=== PATIENT | male | born 1935 | race Caucasian/White ===

== ENCOUNTER 2017-05-22 08:06 | Observation (INO) | payer BC, OTHER ==
--- NOTE | 2017-05-13 09:36 | PAT Medication Instructions ---
Service Date May 13, 2017. Current Home Medication List Aspirin (Aspirin Ec), 81 MG PO QAM Ciprofloxacin Tab (Cipro), 500 MG PO BID Metformin Hcl (Glucophage), 1,000 MG PO QAM Metoprolol Tartrate (Lopressor) (Lopressor), 50 MG PO QAM Medication Instructions For Your Scheduled Surgery - Hold the following medications 10 days before surgery per your surgeon's instructions: Aspirin (Aspirin Ec), 81 MG PO QAM - Hold the following medications 48 hours prior to surgery: Metformin Hcl (Glucophage), 1,000 MG PO QAM - Take the following medications the morning of surgery with a sip of water: Metoprolol Tartrate (Lopressor) (Lopressor), 50 MG PO QAM Ciprofloxacin Tab (Cipro), 500 MG PO BID - Take the following medications as scheduled the night before surgery: Ciprofloxacin Tab (Cipro), 500 MG PO BID If you have any questions please call us at [phone] or [phone] or [phone]
--- NOTE | 2017-05-13 10:14 | DIAGNOSTIC IMAGING REPORT ---
TWO VIEW CHEST CLINICAL HISTORY: Preoperative examination. FINDINGS: PA and lateral chest radiographs are obtained. No prior studies are available for comparison at the time of dictation. The patient is status post midline sternotomy. The heart is enlarged and there is atherosclerotic calcification of the thoracic aorta. The pulmonary vasculature is noncongested. There is left basilar scarring versus atelectasis. The lungs and pleural spaces are otherwise clear. There is no pneumothorax. The skeletal structures are osteopenic. The bony thorax appears intact. IMPRESSION: Cardiomegaly with no active disease in the chest. Electronically signed by: Jorje Blackburn M.D. 05/13/2017 10:13 AM Dictated Date/Time: 05/13/2017 10:12 AM
[2017-05-13 10:24] LABS: BASO % 0.2 %; BASO ABS # 0.02 K/uL (0-0.2); COMPLETE YES; EOS % 1.4 %; IG% 0.4 %; LYMPH % 26.7 %; LYMPH ABS # 2.24 K/uL (1.2-3.4); MEAN CELL VOLUME 94.5 fL (80-100); MEAN CORPUSCULAR HEMOGLOBIN 32.4 pg (25-34); MEAN CORPUSCULAR HGB CONC 34.3 g/dl (32-36); MEAN PLATELET VOLUME 12.2 fL (7.4-10.4); MONO % 9.5 %; NEUT % 61.8 %; PLATELET COUNT 141 K/uL (130-400); RED BLOOD COUNT 4.87 M/uL (4.7-6.1)
[2017-05-13 11:19] LABS: BUN/CREATININE RATIO 18.8 (10-20); CALCIUM 9.2 mg/dl (8.5-10.1); CREATININE 1.09 mg/dl (0.60-1.40); POTASSIUM 4.1 mmol/L (3.5-5.1)
[2017-05-13 11:24] LABS: PROSTATE SPECIFIC ANTIGEN 6.82 ng/ml (0.000-4.000)
[2017-05-22] VITALS (10 sets, daily range): BP systolic 111–167; BP diastolic 66–84; PULSE 57–69; TEMP 36.2–36.9; O2SAT 91–97
[~2017-05-22] VITALS: Ht 170.2 cm; Wt 87.9 kg
[~2017-05-22 08:06] MED LIST: ASPI81TA28 PO; ATROPINE SULFATE 0.1 MG/ML 5ML SYR IV PRN; CIPR1TAB11 PO; CIPROFLOXACIN / D5W 400 MG IV SCH; EpHEDrine SULFATE INJ 50 MG/ML AMP IV PRN; FENTANYL CITRATE INJ 50 MCG/1 ML 2 ML VIAL IV PRN; GENTAMICIN INJ 120 MG in DEXTROSE 5% 100ML 100 ML IV SCH; HYDROmorphone INJ 1 MG/ML SYR IV PRN; LACTATED RINGER'S 1000ML 1,000 ML IV SCH; METF-384 PO; METO50TA16 PO; ONDANSETRON INJ 2 MG/ML 2 ML VIAL IV PRN
[2017-05-22] MEDS ORDERED: LIDOCAINE HCL 2% 2 ML VIAL (20MG/ML) ONE (10:02)
[2017-05-22] MEDS ORDERED: FENTANYL CITRATE INJ 50 MCG/1 ML 2 ML VIAL ONE (10:02)
[2017-05-22] MEDS ORDERED: ONDANSETRON INJ 2 MG/ML 2 ML VIAL ONE (10:02)
[2017-05-22] MEDS ORDERED: PROPOFOL IV EMULSION 10 MG/ML 20 ML VIAL IV ONE (10:02)
--- NOTE | 2017-05-22 10:14 | History & Physical Bridge Note ---
H&P Re-Evaluation Bridge Note: I have examined the patient, reviewed the History & Physical and in the interval since the performance of the History & Physical I have noted the following changes of clinical significance: No changes noted
[2017-05-22] MEDS ORDERED: NURSING VERBAL MED ORDER ONE (10:30)
[2017-05-22] MEDS ORDERED: DEXAMETHASONE SOD INJ 4 MG/ML VIAL ONE (11:23)
[2017-05-22] MEDS ORDERED: EpHEDrine SULFATE 50MG/5ML SYR ONE (11:30)
[2017-05-22] MEDS ORDERED: BELLADONNA/OPIUM SUPP 60 MG SUPP PR ONE ×3 (12:59→13:30)
[2017-05-22] MEDS ORDERED: HYDROmorphone INJ 1 MG/ML SYR IV PRN (13:30)
[2017-05-22] MEDS ORDERED: HYDROCODONE/ACETAMOPHEN 5/325MG TAB PO PRN (13:30)
[2017-05-22] MEDS ORDERED: OXYCODONE/ACETAMINOPHEN 5-325 TAB PO PRN (13:30)
[2017-05-22] MEDS ORDERED: PHENAZOPYRIDINE HCL 200 MG TAB PO PRN (13:30)
[2017-05-22] MEDS ORDERED: INSULIN PROTOCOL GOAL RANGE ONE (13:30)
[2017-05-22] MEDS ORDERED: ONDANSETRON INJ 2 MG/ML 2 ML VIAL IV PRN (13:30)
[2017-05-22] MEDS ORDERED: FAMOTIDINE IV INJ 20 MG in DEXTROSE 5% 100ML 100 ML IV SCH (13:30)
[2017-05-22] MEDS ORDERED: ACETAMINOPHEN 650 MG SUPP PR PRN (13:30)
--- NOTE | 2017-05-22 13:35 | [facility] Post Operative Brief Note ---
Immediate Operative Summary Operative Date May 22, 2017. Pre-Operative Diagnosis Benign Prostatic Hyperplasia; Bladder Stone Post-Operative Diagnosis Benign Prostatic Hyperplasia; Bladder Stone Procedure(s) Performed Cystoscopy, Laser Cystolithopaxy; Bipolar Button Vaporization of Prostate with Greenlight Vaporization of Prostate Surgeon Cornell Escobar Hydrographic Surveyor Surgeon(s) None Estimated Blood Loss 100 cc Findings Vascular prostate with numerous arterial bleeders requiring bipolar resectoscope for control and fulguration, open fossa after completion, bladder stone fragmented and flushed free. Specimens A: Bladder stone fragments for chemical analysis Drains [address] hematuria 30 cc H2O Anesthesia GALMA Complication(s) None Disposition Recovery Room / PACU
--- NOTE | 2017-05-22 13:42 | [facility] Operative Report ---
Operative Report Operative Date May 22, 2017. Pre-Operative Diagnosis Benign Prostatic Hyperplasia; Bladder Stone Post-Operative Diagnosis Benign Prostatic Hyperplasia; Bladder Stone Procedure(s) Performed Cystoscopy, Laser Cystolithopaxy; Bipolar Button Vaporization of Prostate with Greenlight Vaporization of Prostate Surgeon Cornell Escobar Language And Literature Division Chair Surgeon(s) None Estimated Blood Loss 100 cc Findings Vascular prostate with numerous arterial bleeders requiring bipolar resectoscope for control and fulguration, open fossa after completion, bladder stone fragmented and flushed free. Specimens A: Bladder stone fragments for chemical analysis Drains [address] hematuria 30 cc H2O Anesthesia GALMA Complication(s) None Disposition Recovery Room / PACU Indications 81-year-old male who had seen as an outpatient for history of urinary difficulties found to have a bladder stone and a significantly large obstructive prostate on cystoscopy. Please see H&P for further details. He's been pretreated with ciprofloxacin for a positive culture and is dependent on CIC for bladder emptying. He is here today for greenlight vaporization of his prostate and laser cystolithopaxy to manage his disease. SCDs were used for DVT prophylaxis and antibiotic coverage with gentamicin provided seen that he has taken his oral ciprofloxacin this morning. Description of Procedure Patient was properly identified and brought into the operative suite after identification of appropriate consent of the chart. General anesthesia with laryngeal mask was initiated and patient was prepped and draped in the standard fashion for this procedure. Full timeout procedure was followed. 22 [place] rigid cystoscope was passed into the bladder under direct visualization. Bladder stone was encountered within the bladder but the simple passage of the rigid cystoscope began causing sufficient bleeding from the prostate gland the visualization was poor. Grade 3 trabeculation was noted and ureteral orifices were appreciated to be away from the bladder neck. However was not felt to be safe to proceed with laser cystolitholapaxy until the prostate could be better controlled. Cystoscope was removed and greenlight laser scope was advanced. Circumferential vaporization of the prostate gland was commenced using a side fire laser fiber but this rapidly ran into difficulties with visualization due to brisk bleeding from the prostate tissue. After a short period of time this was not felt to be viable due to the smaller circumference of the greenlight scope and the inability to irrigate sufficiently. Greenlight laser scope was removed and a 27 [place] bipolar resectoscope was advanced into the bladder under direct visualization. Using a bipolar button vaporization of the prostate and cauterization of bleeding vessels as the procedure progressed was undertaken. Throughout the prostate gland at all levels at all points of the surgery brisk bleeding from arterial vessels throughout the prostate gland was present. Approximately chcf through the case when the bleeding was felt to be somewhat abated the greenlight laser scope was reintroduced and again attempted with rapid repetition of the initial bleeding events requiring switching back to bipolar vaporization for the rest of the case. Relaxing incisions at the bladder neck were made and a midline incision at the 6 o'clock position was also made to allow for easier access into the bladder. After the prostate was open and adequate hemostasis was obtained the cystoscope was reloaded into the bladder and the bladder stone was fragmented into smaller pieces able to be irrigated free using a 400 fiber and holmium laser at high settings. After this was complete hemostasis was again obtained at the level of the prostate by reintroducing the bipolar resectoscope and button. Prostatic fossa was felt to be sufficiently open. Resectoscope was removed and a 24 [place] 3-way hematuria catheter with 30 mL of sterile water in the balloon was placed with return of clear fluid. This was placed to continuous bladder irrigation and decision was made to observe the patient overnight seen his difficulties with bleeding intraoperatively. Belladonna and opium suppository was provided for additional postoperative analgesia. Anesthesia was reversed patient was transferred to the recovery room in stable condition. Follow-up care: Patient will be admitted to the floor for continuous bladder irrigation overnight. Hopefully patient will be discharged home with his Beck catheter placed tomorrow. Care is discussed with the patient's family was present here today. I attest to the content of the Intraoperative Record and any orders documented therein. Any exceptions are noted below.
[2017-05-22] MEDS ORDERED: IV FLUIDS COMPLETED PRN (14:15)
--- NOTE | 2017-05-22 14:16 | Anesthesiology Progress Note ---
Anesthesia Post Op Note Date & Time May 22, 2017 at 14:16 Vital Signs Pain Intensity: 0 Vital Signs Past 12 Hours Date Time Temp Pulse Resp B/P (MAP) Pulse Ox O2 Delivery O2 Flow Rate FiO2 05/22/17 14:00 58 19 137/73 97 Nasal Cannula 2 05/22/17 13:50 58 16 139/72 96 Nasal Cannula 2 05/22/17 13:40 57 15 128/66 98 Oxymask 10 05/22/17 13:30 57 15 128/70 99 Oxymask 10 05/22/17 13:20 36.8 56 14 115/62 99 Oxymask 10 05/22/17 08:29 64 22 167/84 (111) 95 Room Air Notes Mental Status: alert / awake / arousable, participated in evaluation Pt Amnestic to Procedure: Yes Nausea / Vomiting: adequately controlled Pain: adequately controlled Airway Patency, RR, SpO2: stable & adequate BP & HR: stable & adequate Hydration State: stable & adequate Anesthetic Complications: no major complications apparent
[2017-05-22] MEDS ORDERED: PHARMACY GLYCEMIC MGMT CONSULT PRN (14:23)
[2017-05-22] MEDS ORDERED: GLUCOSE 40% GEL 15 GM TUBE PO PRN (14:30)
[2017-05-22] MEDS ORDERED: DEXTROSE 50% 50 ML SYR IV PRN (14:30)
[2017-05-22] MEDS ORDERED: GLUCAGON FOR INJ 1 MG VIAL SQ PRN (14:30)
[2017-05-22] MEDS ORDERED: GLUCOSE 10 TABS/TUBE PO PRN (14:30)
--- NOTE | 2017-05-22 14:40 | Pharmacy Progress Note ---
Glycemic Control Intl Consult Date of Service May 22, 2017. Scope Glycemic Pharmacist consulted by Dr Escobar on 05/22/17 for glycemic control and to write orders per [facility] inpatient glycemic control protocol Objective Weight (Kilograms): 87.90 Accuchecks BSG (last 24hrs): Test 05/22/17 08:32 05/22/17 13:23 Bedside Glucose 145 mg/dl (70-99) 130 mg/dl (70-99) Recent Pertinent Medications Outpatient Anti-diabetic Regimen: * metformin 1 gm PO daily Risk Factors for Insulin Resistance: * Steroids: dex 4 mg IV intraoperatively * Recent Surgery- POD 0 Assessment & Plan ASSESSMENT: * ADA & AACE recommend a goal blood sugar range 140-180 mg/dl for the majority of critically ill & non-critically ill patients. However, more stringent targets may be selected in individual cases. Will utilize more stringent goal of 110-140mg/dl based on patient age & comorbidities. Additionally, tighter glycemic control is warranted to facilitate wound healing. * Mr Bailey is an 81 y/o M who takes oral medication to control his diabetes. Patient underwent surgery for his prostate today and received dexamethasone 4 mg IV intraoperatively. The patient's blood sugars prior to surgery were reasonably well-controlled at 121 mg/dL and 130 mg/dL. * Will utilize weight-based stress of 2 dosing for Novolog since the patient did receive dexamethasone 4 mg IV x 1 intraoperatively. This indicates the patient will clearly need tighter control. * For Lantus, a scale utilizing weight-based stress of 1 and 2 plus a zero dose will be utilized as uncertain how patient will respond. Also patient does not have a diet ordered so scale is currently appropriate. * Pt is maintained on oral antidiabetic agents as an outpatient * Oral agents are not recommended for inpatient use d/t drug interactions, changing PO intake, and difficulty titrating for acute hyper/hypoglycemia. ADA recommends re-initiating outpatient oral agents 1-2 days prior to discharge if/ when appropriate if they were held on admission. * Will hold oral agents for admission and utilize SQ basal bolus insulin regimen which is the recommended regimen for inpatient glycemic control. * Will initiate weight based insulin dosing for insulin richard patient and titrate based on BSG trends. PLAN FOR INPATIENT GLYCEMIC CONTROL: * Holding outpatient oral diabetes medications * Basal insulin with LANTUS 0-20 units SQ x 1 tonight * Correctional Insulin with NOVOLOG per scale ACHS or Q6hrs while NPO * Goal Range: Low 110 mg/dL - High 140 mg/dL * Correction Factor: 25 mg/dL/unit * Nutritional / Prandial insulin per carb ratio of 1 unit per 8 grams CHO consumed * Please note that the plan above was derived based on current level of insulin resistance and hospital stress. These recommendations are appropriate for inpatient admission only. Plan of care upon discharge will need to be reassessed to avoid potential outpatient hypo/hyperglycemia. Thank you.
[2017-05-22] MEDS: LACTATED RINGER'S 1000ML 1,000 ML IV SCH (15:15)
[2017-05-22] MEDS ORDERED: METO25TA3 PO (15:15)
[2017-05-22] MEDS: FAMOTIDINE IV INJ 20 MG in SYRINGE 3 ML IV SCH (15:32)
[2017-05-22] MEDS ORDERED: INFLUENZA ADMINISTRATION CHARGE ONE (16:00)
[2017-05-22] MEDS ORDERED: INFLUENZA VACCINE HIGH DOSE 65+ 0.5 ML SYR IM. ONE (16:00)
[2017-05-22 16:22] LABS: HEMATOCRIT 45.3 % (42-52); MEAN CELL VOLUME 94.4 fL (80-100); MEAN CORPUSCULAR HEMOGLOBIN 32.1 pg (25-34); MEAN PLATELET VOLUME 11.5 fL (7.4-10.4); PLATELET COUNT 128 K/uL (130-400); WHITE BLOOD COUNT 10.39 K/uL (4.8-10.8)
[2017-05-22 17:08] LABS: CALCIUM 8.7 mg/dl (8.5-10.1); CREATININE 1.09 mg/dl (0.60-1.40); POTASSIUM 4.3 mmol/L (3.5-5.1)
[2017-05-22] MEDS: CIPROFLOXACIN / D5W 400 MG in PREMIXED IN D5W 200 ML IV SCH (18:05)
[2017-05-22] MEDS: INSULIN ASPART 100 UNITS/ML 3 ML PEN SC SCH ×2 (18:07→21:49)
--- NOTE | 2017-05-22 18:30 | Progress Note ---
Progress Note Date of Service May 22, 2017. Progress Note PM rounds Patient s/p TURP, laser cystolithopaxy. Resting comfortably, justine reg diet No complaints. Labwork stable, noted below. NAD Good respiratory excursion S1S2 Soft, ND, NT Thompson draining light pink urine no clots, moderate CBI A/P Patient s/p TURP Doing well Likely DC home with thompson tomorrow CBI overnight, stop in AM Last 24 Hours Test 05/22/17 00:00 05/22/17 08:32 05/22/17 13:23 05/22/17 16:02 Bedside Glucose 145 mg/dl 130 mg/dl White Blood Count 10.39 K/uL Red Blood Count 4.80 M/uL Hemoglobin 15.4 g/dL Hematocrit 45.3 % Mean Corpuscular Volume 94.4 fL Mean Corpuscular Hemoglobin 32.1 pg Mean Corpuscular Hemoglobin Concent 34.0 g/dl RDW Standard Deviation 47.6 fL RDW Coefficient of Variation 13.8 % Platelet Count 128 K/uL Mean Platelet Volume 11.5 fL Sodium Level 139 mmol/L Potassium Level 4.3 mmol/L Chloride Level 102 mmol/L Carbon Dioxide Level 27 mmol/L Anion Gap 9.0 mmol/L Blood Urea Nitrogen 20 mg/dl Creatinine 1.09 mg/dl Est Creatinine Clear Calc Drug Dose 56.3 ml/min Estimated GFR () 73.4 Estimated GFR (Non- 63.3 BUN/Creatinine Ratio 18.0 Random Glucose 172 mg/dl Calcium Level 8.7 mg/dl Test 05/22/17 16:47 Bedside Glucose 183 mg/dl
[2017-05-22] MEDS ORDERED: LANTUS PER UNIT CHARGE SQ PRN ×2 (21:00)
[2017-05-22] MEDS: DOCUSATE SODIUM 100 MG CAP PO SCH (21:44)
[2017-05-23] MEDS ORDERED: INSULIN ASPART 100 UNITS/ML 3 ML PEN SC SCH (02:00)
[2017-05-23 03:03] VITALS: BP 105/64; PULSE 62; TEMP 36.3; O2SAT 94
[2017-05-23] MEDS: FAMOTIDINE IV INJ 20 MG in SYRINGE 3 ML IV SCH (03:07)
[2017-05-23] MEDS: LACTATED RINGER'S 1000ML 1,000 ML IV SCH ×2 (03:07→10:59)
[2017-05-23] MEDS ORDERED: NURSING DECISION MEDICATION ORDER SCH (03:30)
[2017-05-23] MEDS ORDERED: COUGH DROP (SUGAR FREE) LOZ 24 LOZ/1 BOX PO PRN (03:45)
[2017-05-23] MEDS: CIPROFLOXACIN / D5W 400 MG in PREMIXED IN D5W 200 ML IV SCH (05:58)
[2017-05-23 06:27] LABS: BASO % 0.1 %; BASO ABS # 0.01 K/uL (0-0.2); COMPLETE YES; EOS % 0.2 %; HEMATOCRIT 41.5 % (42-52); IG% 0.3 %; LYMPH % 14.1 %; LYMPH ABS # 2.05 K/uL (1.2-3.4); MEAN CELL VOLUME 93.5 fL (80-100); MEAN CORPUSCULAR HEMOGLOBIN 31.8 pg (25-34); MONO % 9.5 %; NEUT % 75.8 %; PLATELET COUNT 149 K/uL (130-400); RED BLOOD COUNT 4.44 M/uL (4.7-6.1); WHITE BLOOD COUNT 14.59 K/uL (4.8-10.8)
[2017-05-23 06:59] VITALS: BP 126/70; PULSE 60; TEMP 36.4; O2SAT 92
[2017-05-23 07:02] LABS: BUN/CREATININE RATIO 15.5 (10-20); CALCIUM 8.5 mg/dl (8.5-10.1); CREATININE 1.16 mg/dl (0.60-1.40)
--- NOTE | 2017-05-23 07:51 | Progress Note ---
Subjective Date of Service: May 23, 2017. Subjective Pt evaluation today including: conversation w/ patient, physical exam, chart review, lab review, review of inpatient medication list Pain: Controlled PO Intake: Temi reg diet Voiding: thompson catheter in place (slow CBI, clear, light pink urine, no clots) 81 yo male POD#1 s/p TURP and cystolithopaxy. Nursing notes reviewed. He notes his hematuria varies with activity, at worst "pink lemonade." He is in good spirits, notes some mild lightheadedness with ambulation in room this AM. No other complaints, labwork stable. Review of Systems Constitutional: No fever, No chills Eyes: No worsening of vision ENT: No hearing loss Respiratory: No sputum, No shortness of breath Cardiac: No chest pain Abdomen: No pain, No nausea, No vomiting, No diarrhea Male : + see HPI, + hematuria Neurologic: No memory loss, No paralysis Psychiatric: No depression symptoms Endo: No excessive urination Skin: No new/changing skin lesions Objective Vital Signs Date Time Temp Pulse Resp B/P (MAP) Pulse Ox O2 Delivery O2 Flow Rate FiO2 05/23/17 06:59 36.4 60 18 126/70 (88) 92 Room Air 05/23/17 03:03 36.3 62 16 105/64 (78) 94 Room Air 05/22/17 23:53 Room Air 05/22/17 22:50 36.3 64 16 111/66 (81) 92 Room Air 05/22/17 20:39 36.2 69 16 123/72 (89) 91 Room Air 05/22/17 20:10 Room Air 05/22/17 17:35 36.5 65 16 127/73 (91) 91 05/22/17 16:33 36.9 68 16 152/77 (102) 92 Room Air 05/22/17 15:33 36.7 57 16 130/70 (90) 94 Nasal Cannula 2.0 05/22/17 15:04 59 18 128/71 (90) 96 Nasal Cannula 2.0 05/22/17 14:40 96 Nasal Cannula 2.0 05/22/17 14:35 97 Nasal Cannula 2.0 05/22/17 14:34 36.4 61 17 132/75 (94) 97 Nasal Cannula 2.0 05/22/17 14:20 37.3 57 15 124/72 96 Nasal Cannula 2 05/22/17 14:10 57 15 128/68 97 Nasal Cannula 2 05/22/17 14:00 58 19 137/73 97 Nasal Cannula 2 05/22/17 13:50 58 16 139/72 96 Nasal Cannula 2 05/22/17 13:40 57 15 128/66 98 Oxymask 10 05/22/17 13:30 57 15 128/70 99 Oxymask 10 05/22/17 13:20 36.8 56 14 115/62 99 Oxymask 10 05/22/17 08:29 64 22 167/84 (111) 95 Room Air Physical Exam General Appearance: no apparent distress ENT: hearing grossly normal Neck: supple, no adenopathy Respiratory/Chest: no respiratory distress, no accessory muscle use Cardiovascular: no JVD Abdomen: non tender, soft Neurologic/Psychiatric: alert Comments: 3 [address], urine clear, minimal CBI Laboratory Results Last 24 Hours Test 05/22/17 08:32 05/22/17 13:23 05/22/17 16:02 05/22/17 16:47 Bedside Glucose 145 mg/dl 130 mg/dl 183 mg/dl White Blood Count 10.39 K/uL Red Blood Count 4.80 M/uL Hemoglobin 15.4 g/dL Hematocrit 45.3 % Mean Corpuscular Volume 94.4 fL Mean Corpuscular Hemoglobin 32.1 pg Mean Corpuscular Hemoglobin Concent 34.0 g/dl RDW Standard Deviation 47.6 fL RDW Coefficient of Variation 13.8 % Platelet Count 128 K/uL Mean Platelet Volume 11.5 fL Sodium Level 139 mmol/L Potassium Level 4.3 mmol/L Chloride Level 102 mmol/L Carbon Dioxide Level 27 mmol/L Anion Gap 9.0 mmol/L Blood Urea Nitrogen 20 mg/dl Creatinine 1.09 mg/dl Est Creatinine Clear Calc Drug Dose 56.3 ml/min Estimated GFR () 73.4 Estimated GFR (Non- 63.3 BUN/Creatinine Ratio 18.0 Random Glucose 172 mg/dl Calcium Level 8.7 mg/dl Test 05/22/17 20:36 05/23/17 01:51 05/23/17 05:32 Bedside Glucose 190 mg/dl 119 mg/dl White Blood Count 14.59 K/uL Red Blood Count 4.44 M/uL Hemoglobin 14.1 g/dL Hematocrit 41.5 % Mean Corpuscular Volume 93.5 fL Mean Corpuscular Hemoglobin 31.8 pg Mean Corpuscular Hemoglobin Concent 34.0 g/dl Platelet Count 149 K/uL Mean Platelet Volume 12.0 fL Neutrophils (%) (Auto) 75.8 % Lymphocytes (%) (Auto) 14.1 % Monocytes (%) (Auto) 9.5 % Eosinophils (%) (Auto) 0.2 % Basophils (%) (Auto) 0.1 % Neutrophils # (Auto) 11.07 K/uL Lymphocytes # (Auto) 2.05 K/uL Monocytes # (Auto) 1.38 K/uL Eosinophils # (Auto) 0.03 K/uL Basophils # (Auto) 0.01 K/uL RDW Standard Deviation 46.9 fL RDW Coefficient of Variation 13.7 % Immature Granulocyte % (Auto) 0.3 % Immature Granulocyte # (Auto) 0.05 K/uL Sodium Level 138 mmol/L Potassium Level 4.0 mmol/L Chloride Level 102 mmol/L Carbon Dioxide Level 27 mmol/L Anion Gap 9.0 mmol/L Blood Urea Nitrogen 18 mg/dl Creatinine 1.16 mg/dl Est Creatinine Clear Calc Drug Dose 52.9 ml/min Estimated GFR () 68.1 Estimated GFR (Non- 58.7 BUN/Creatinine Ratio 15.5 Random Glucose 126 mg/dl Calcium Level 8.5 mg/dl Assessment and Plan A/P 81 yo male POD#1 s/p TURP and laser cystolithopaxy. Intraop findings reviewed with patient. CBI stopped - patient encouraged to ambulate with assistance. If urine remains clear, will plug CBI port and DC home with thompson in place. Postop limitations reviewed. Outpatient visit for TOV and postop check noted. Discharge planning: home
[2017-05-23] MEDS: DOCUSATE SODIUM 100 MG CAP PO SCH (08:49)
[2017-05-23] MEDS: INSULIN ASPART 100 UNITS/ML 3 ML PEN SC SCH ×2 (08:52→13:00)
[2017-05-23 08:58] LABS: ESTIMATED AVERAGE GLUCOSE 128 mg/dl; HA1C FLAG Normal (Normal)
[2017-05-23] MEDS ORDERED: METOPROLOL SUCC 25MG EXT REL TAB PO SCH (09:00)
[2017-05-23 10:00] VITALS: Ht 170.2 cm; Wt 87.9 kg
[2017-05-23] MEDS ORDERED: OXYC-57 PO (10:51)
[2017-05-23] MEDS ORDERED: CLC100 PO (10:51)
--- NOTE | 2017-05-23 11:04 | Discharge Instructions ---
Discharge Instructions Date of Service May 23, 2017. Admission Reason for Admission: Benign Prostatic Hypertrophy, Bladder Stone Discharge Discharge Diagnosis / Problem: Benign Prostatic Hypertrophy, Bladder stone Discharge Goals Goal(s): Therapeutic intervention Activity Recommendations Activity Limitations: as noted below Lifting Limitations: no more than 10 pounds (x 1 week) Exercise/Sports Limitations: rest today, gradually increase as tolerated ( Light activity x 2 weeks) May Resume Sexual Activity: after follow-up appointment Shower/Bathe: no limitations (no tub baths, showers only with thompson catheter in place) Driving or Machine Use: resume 3 days after discharge (Do not drive while taking narcotics. ) . Instructions / Follow-Up Instructions / Follow-Up 1. Finish all Ciprofloxacin. 2. You may restart your Aspirin once urine is clear. 3. Follow up for thompson catheter removal on 05-27-17 at 11:10am. Follow up with Dr. Escobar on 06-16 at 11:10am. Follow-up as scheduled. Please call our office at [phone] if you need to reschedule for any reason. Current Hospital Diet Patient's current hospital diet: Diabetes Type 2 Diet Discharge Diet Recommended Diet: Diabetes Type 2 Diet Procedures Procedures Performed: Cystoscopy, Laser Cystolithopaxy; Bipolar Button Vaporization of Prostate with Greenlight Vaporization of Prostate Pending Studies Studies pending at discharge: yes (stone analaysis) List of pending studies: stone analysis Laboratory Results Hemoglobin A1c Test 05/23/17 05:32 Range/Units Estimated Average Glucose 128 mg/dl Hemoglobin A1c 6.1 H 4.5-5.6 % Medical Emergencies . Who to Call and When: Medical Emergencies: If at any time you feel your situation is an emergency, please call 911 immediately. . Non-Emergent Contact Non-Emergency issues call your: Urologist Call Non-Emergent contact if: temperature is above 101.5, your pain is not controlled, your pain is worsening, your pain is unusual for you, your pain is concerning you, you have any medication questions . . "Provider Documentation" section prepared by Tracy Stinson. . VTE Core Measure Inpt VTE Proph given/why not?: SCD's [place] Drug Monitoring Program Search Results: patient reviewed within database, no issues identified
[2017-05-23 11:52] VITALS: BP 126/70; PULSE 60; TEMP 36.4; O2SAT 92
[2017-05-23 12:05] VITALS: BP 109/62; PULSE 64; TEMP 36.6; O2SAT 92
== END 2017-05-23 14:16 | disposition home or self-care (01) ==
LOC: C.ACU 08:06 → C.MSN 13:33 → ENRESERV 13:58
PROVIDERS: ADMIT Urology; ATTEND Urology
DX: N40.0 Benign prostatic hyperplasia without lower urinary tract symptoms (principal); N21.0 Calculus in bladder; R97.20 Elevated prostate specific antigen [PSA]; R33.9 Retention of urine, unspecified; E11.9 Type 2 diabetes mellitus without complications; Z95.1 Presence of aortocoronary bypass graft; I50.9 Heart failure, unspecified; I25.2 Old myocardial infarction; Z87.898 Personal history of other specified conditions; Z90.89 Acquired absence of other organs; Z98.890 Other specified postprocedural states; Z79.82 Long term (current) use of aspirin